=== PATIENT | male | born 1950 | race Caucasian/White ===

== ENCOUNTER 2024-09-22 14:00 | Emergency (ER) | payer MEDICARE, OTHER, SELFPAY ==
[2024-09-22] VITALS (11 sets, daily range): BP systolic 109–138; BP diastolic 73–101; BMI 26.6
[2024-09-22 14:44] LABS: ALT (SGPT) 76 U/L (0-50); AST (SGOT) 104 U/L (17-59); Albumin 3.8 g/dl (3.5-5.0); Alkaline Phosphatase 144 U/L (38-126); Blood Urea Nitrogen 13 mg/dl (9-20); Calcium 8.9 mg/dl (8.4-10.2); Carbon Dioxide 31 mmol/L (22-30); Chloride 93 mmol/L (98-107); Glucose 126 mg/dl (70-99); Potassium 3.7 mmol/L (3.5-5.1); Sodium 134 mmol/L (135-145); Total Bilirubin 0.9 mg/dl (0.2-1.3); Total Protein 6.5 g/dl (6.3-8.2); eGFR > 60.00
[2024-09-22 14:52] LABS: % Basophils 0.2 % (0-2); % Eosinophils 6.6 % (0-6); % Immature Granulocytes 0.4 % (0-0.5); % Lymphocytes 24.2 % (20.5-51.1); % Neutrophils 59.6 % (42.2-75.2); Absolute Eosinophils 0.3 10^3/uL (0-0.7); Absolute Lymphocytes 1.1 10^3/uL (1.2-3.4); Absolute Monocytes 0.4 10^3/uL (0.1-0.6); Absolute Neutrophils 2.7 10^3/uL (1.4-6.5); Hemoglobin 16.8 g/dL (13.0-18.0); Mean Corp Hgb Conc. 35.7 g/dL (33.0-37.0); Mean Corpuscular Hgb 32.7 pg (27.0-31.0); Mean Corpuscular Volume 91.4 fL (80.0-94.0); Mean Platelet Volume 11.5 fL (7.4-10.4); Nucleated Red Blood Cells % 0 % (-); Platelet Count 108 10^3/uL (130-400); Red Blood Cell Count 5.14 10^6/uL (4.70-6.10); Red Cell Dist. Width 11.9 % (11.5-14.5); White Blood Cell Count 4.6 10^3/uL (4.8-10.8)
[2024-09-22] MEDS: ZOFRAN 4 MG IV (18:43)
[2024-09-22] MEDS: NSS 1000 IV (18:44)
--- NOTE | 2024-09-22 19:39 | ED.GENMED ---
History of Present Illness
<Gladys Gonzalez PA-C - Last Filed: 09/22/24 22:27>
General
Chief Complaint: Cold/Flu/URI Symptoms
Source: patient
Exam Limitations: none
Time Seen by Provider: 09/22/24 16:23
Nursing documentation reviewed up to this point in time: agreed with
History of Present Illness
History of Present Illness:
This is a 74-year-old male with past medical history of hypertension, IBS presents emergency department today with concerns of weakness and persistent flu symptoms. Patient states that he was diagnosed for flu over a week ago and was started on
Tamiflu. Patient states that he feels like the Tamiflu is not working and he has a persistent cough as well as weakness. He gets intermittent shortness of breath. He is concerned that he may have developed pneumonia. He denies any chest pain.
He states that in order to clear his sinuses, he took a hot shower 2 days ago and states that the shower was very hot and he started to feel lightheaded and had syncopal episode. Patient did not strike his head at the time. Patient states that
lasted a few seconds. He denies any neck pain. He is not take any blood thinners. He denies any fevers or chills. He denies any hemoptysis.
Past History
<Gladys Gonzalez PA-C - Last Filed: 09/22/24 22:27>
Past History
ED Past Medical History: HTN
Social History
Tobacco: Non-smoker
Alcohol: Occasional
Personal:
Family History
Family History: Negative Diabetes, Hypertension or CAD
Review of Systems
<Gladys Gonzalez PA-C - Last Filed: 09/22/24 22:27>
Review of Systems
All Other Systems: ROS reviewed and negative except as documented in HPI and ROS
Phy Exam
<Gladys Gonzalez PA-C - Last Filed: 09/22/24 22:27>
Physical Exam
Physical Exam:
General: Patient is well appearing and in no acute distress; non-toxic
Skin: Warm and dry, no rashes or lesions
Head: Normocephalic, atraumatic
Eyes: Sclera non-icteric. EOMs intact.
Cardiac: Regular rate and rhythm, no murmurs
Peripheral Vascular: No lower extremity swelling or edema
Pulm: Normal respiratory effort, no wheezes, rales, or rhonchi
Abdomen: No abdominal tenderness to palpation
Neuro: CN II-XII intact, no focal neurologic deficits.
Psychiatric: Appropriate mood and affect.
Course
Abdonlt;Gladys Gonzalez PA-C - Last Filed: 09/22/24 22:27>
Orders/Labs/Results
Orders:
Orders
09/22/24 14:03
EKG [Electrocardiogram (*1)] Urgent
Reason for Study: Vertigo / Dizzy
09/22/24 14:04
EKG- Treatment ONCE
09/22/24 14:20
Complete Blood Count/With Diff Urgent
Comprehensive Metabolic Panel Urgent
09/22/24 17:02
CXR2 [CR Chest - 2 Views ] Urgent
Comment:
Reason For Exam: shortness of breath
09/22/24 18:28
0.9% Sodium Chloride 1000 ml [Nss] 1,000 ml IV BOLUS
Ondansetron Injectable [Zofran] 4 mg IV NOW STA
09/22/24 21:07
Electrocardiogram (*1) Urgent
Reason for Study: Bradycardia / Tachycardia
EKG- Treatment ONCE
09/22/24 21:20
Adenosine [Adenocard] 18 mg .ROUTE .STK-MED ONE
09/22/24 21:21
Adenosine [Adenocard] 6 mg IV NOW STA
Abnormal Lab Results
09/22/24
14:20
WBC 4.6 L 10^3/uL
(4.8-10.8)
MCH 32.7 H pg
(27.0-31.0)
Plt Count 108 L 10^3/uL
(130-400)
MPV 11.5 H fL
(7.4-10.4)
Absolute Lymphs (auto) 1.1 L 10^3/uL
(1.2-3.4)
Eosinophils % 6.6 H %
(0-6)
Sodium 134 L mmol/L
(135-145)
Chloride 93 L mmol/L
(98-107)
Carbon Dioxide 31 H mmol/L
(22-30)
Glucose 126 H mg/dl
(70-99)
AST 104 H U/L
(17-59)
ALT 76 H U/L
(0-50)
Alkaline Phosphatase 144 H U/L
(38-126)
09/22/24 14:20
09/22/24 14:20
Vital Signs
Initial and Last Documented VS:
Initial Vital Signs
Temp Pulse Resp BP Pulse Ox
97.6 F 95 18 125/85 98
09/22/24 14:09 09/22/24 14:09 09/22/24 14:09 09/22/24 14:09 09/22/24 14:09
Last Documented Vital Signs
Temp Pulse Resp BP Pulse Ox
98.2 F 76 20 138/85 96
09/22/24 17:02 09/22/24 21:30 09/22/24 17:02 09/22/24 21:22 09/22/24 21:30
Abdonlt;Ceferino Montgomery, DO - Last Filed: 09/22/24 22:25>
Orders/Labs/Results
Orders:
Orders
09/22/24 14:03
EKG [Electrocardiogram (*1)] Urgent
Reason for Study: Vertigo / Dizzy
09/22/24 14:04
EKG- Treatment ONCE
09/22/24 14:20
Complete Blood Count/With Diff Urgent
Comprehensive Metabolic Panel Urgent
09/22/24 17:02
CXR2 [CR Chest - 2 Views ] Urgent
Comment:
Reason For Exam: shortness of breath
09/22/24 18:28
0.9% Sodium Chloride 1000 ml [Nss] 1,000 ml IV BOLUS
Ondansetron Injectable [Zofran] 4 mg IV NOW STA
09/22/24 21:07
Electrocardiogram (*1) Urgent
Reason for Study: Bradycardia / Tachycardia
EKG- Treatment ONCE
09/22/24 21:20
Adenosine [Adenocard] 18 mg .ROUTE .STK-MED ONE
09/22/24 21:21
Adenosine [Adenocard] 6 mg IV NOW STA
Abnormal Lab Results
09/22/24
14:20
WBC 4.6 L 10^3/uL
(4.8-10.8)
MCH 32.7 H pg
(27.0-31.0)
Plt Count 108 L 10^3/uL
(130-400)
MPV 11.5 H fL
(7.4-10.4)
Absolute Lymphs (auto) 1.1 L 10^3/uL
(1.2-3.4)
Eosinophils % 6.6 H %
(0-6)
Sodium 134 L mmol/L
(135-145)
Chloride 93 L mmol/L
(98-107)
Carbon Dioxide 31 H mmol/L
(22-30)
Glucose 126 H mg/dl
(70-99)
AST 104 H U/L
(17-59)
ALT 76 H U/L
(0-50)
Alkaline Phosphatase 144 H U/L
(38-126)
09/22/24 14:20
09/22/24 14:20
Vital Signs
Initial and Last Documented VS:
Initial Vital Signs
Temp Pulse Resp BP Pulse Ox
97.6 F 95 18 125/85 98
09/22/24 14:09 09/22/24 14:09 09/22/24 14:09 09/22/24 14:09 09/22/24 14:09
Last Documented Vital Signs
Temp Pulse Resp BP Pulse Ox
98.2 F 76 20 138/85 96
09/22/24 17:02 09/22/24 21:30 09/22/24 17:02 09/22/24 21:22 09/22/24 21:30
<Gladys Gonzalez PA-C - Last Filed: 09/22/24 22:27>
MDM/Problems Addressed
Differential Diagnosis Includes:
Influenza, COVID-19, pneumonia, acute bronchitis
MDM/Problems Addressed:
74-year-old male presents emergency department today with concerns of increasing weakness following testing positive for influenza. He also had a syncopal episode. I suspect his syncopal episode secondary to vasovagal syncope as patient was in a
hot shower at the time. Chest x-ray shows no concurrent pneumonia. Patient was given IV fluids and Zofran for his nausea. Close the patient's discharge time, patient started develop palpitations. EKG was repeated and patient was found to be in
SVT. Patient states that he has had this sensation in the past but never received a diagnosis and was told it was anxiety. Patient was given adenosine and he converted to sinus rhythm. Discussed importance of follow-up with cardiology. Patient
stable for discharge.
Chronic conditions affecting care:
Hypertension, IBS, and
<Gladys Gonzalez PA-C - Last Filed: 09/22/24 22:27>
*Pulse Oximetry
Patient hypoxic: no
*EKG
Interpreted by ED Provider?: Yes
Interpretation: abnormal
Heart Rate: 170
Rate: tachycardiac
Rhythm: SVT
Ischemia: no ischemia
*Critical Care Note
Total Time (30-74mins, 75-104mins- exclusive of procedures): Not Applicable
Data Reviewed
Review of Other/Old Records Reveals: Records (Reviewed ER physician documentation from 12/07/2020 patient seen for lower abdominal pain)
Source: patient and records
<Gladys Gonzalez PA-C - Last Filed: 09/22/24 22:27>
Patient Management
Escalation/DeEscalation of care consider admission/obs:
patient stable for discharge
ED Attending Note
<Gladys Gonzalez PA-C - Last Filed: 09/22/24 22:27>
-
Portions of this chart may have been created with voice recognition software.� Occasional wrong word or��sound alike� substitutions may have occurred due to the inherent limitations of voice recognition software.
<Cefernio Montgomery DO - Last Filed: 09/22/24 22:25>
ED Attending Note
Patient seen and examined by attending physician: Yes
I performed a history and physical exam of patient and discussed management with resident, I reviewed resident's note and agree with documented findings and plan of care.: Yes
ED Attending Note:
I have reviewed and agree with history treatment plan by Gladys Pham PA-C. My exam revealed 74-year-old male in no acute distress. Intermittent cough. Syncope episode, but with prodromal symptoms, patient was lightheaded and in a hot
shower. Doubt dysrhythmia. Patient feels better after IV fluids. Stable for discharge. Follow-up with primary care.
Patient had episode of SVT, resolved after 6 mg adenosine. Stable for discharge. Follow-up with cardiology.
Discharge Plan
Departure
Patient Disposition: Home (Routine Discharge)
Date of Disposition: 09/22/24
Time of Disposition: 21:25
Patient with high blood pressure during this ER visit?: Yes
Condition: Good
Discharge Problem:
Supraventricular tachycardia, Influenza
Instructions: Supraventricular tachycardia (SVT), Flu in adults - Discharge instructions, BLOOD PRESSURE
Prescriptions:
No Action
buspirone 5 mg Tablet
5 mg PO BID
hydrochlorothiazide 25 mg Tablet
25 mg PO DAILY
metoprolol tartrate 25 mg Tablet
25 mg PO BID
oseltamivir [Tamiflu] 30 mg Capsule
30 mg PO DAILY
Referrals:
Blake Banda MD [Family Provider] -
Arturo Martinez DO [Active] - Call in 1-3 days for appt
Activity Restrictions/Additional Instructions:
Please see the attached number to schedule an appointment with cardiology.
PLEASE RETURN TO THE EMERGENCY DEPARTMENT SHOULD YOU DEVELOP SHORTNESS OF BREATH, INTRACTABLE NAUSEA OR VOMITING, PALPITATIONS, CHEST PAIN, SYNCOPAL EPISODES, DIZZINESS, OR ANY OTHER SIGNS OR SYMPTOMS CONCERNING TO YOU.
Your chest x-ray did not show any evidence of pneumonia.
Please stay well hydrated.
Interventions
Interventions:
*Risk Screen - Suicide Last Done: 09/22/24 14:09
*General Assessment Last Done: 09/22/24 14:09
*Neglect/Abuse Screening Last Done: 09/22/24 14:09
ED- Fall Risk Assessment Last Done: 09/22/24 17:02
*ED COVID-19 Vaccine History Last Done: 09/22/24 17:02
*Nursing Disposition Last Done: 09/22/24 21:56
ED- Pulmonary Assessment Last Done: 09/22/24 17:02
Discharge Date and Time
Discharge Date/Time: 09/22/24 21:58
Print Language: MACANESE
[2024-09-22] MEDS: ADENOCARD 6 MG IV (21:22)
== END 2024-09-22 21:58 | disposition home or self-care (01) ==
LOC: EMR 14:00
PROVIDERS: EMERGENCY PHYSICIAN Emergency Medicine; FAMILY PHYSICIAN Internal Medicine
DX: I47.10 Supraventricular tachycardia, unspecified (principal); J11.1 Influenza due to unidentified influenza virus with other respiratory manifestations; I10 Essential (primary) hypertension
CPT/HCPCS: 96374; 96375; 96361; 99285; 71046; 80053; 85025; 93005; J0153